=== PATIENT | male | born 1965 | race Caucasian/White ===

== ENCOUNTER 2017-09-20 09:03 | Emergency (ER) | END 2017-09-20 12:27 | disposition home or self-care (01) ==

== ENCOUNTER → 2018-11-22 | Outpatient (CLI) | payer BC, OTHER ==
[~2018-11-22] MED LIST: IBUP800T48 PO
--- NOTE | 2018-11-22 19:05 | CONS ---
Assessment/Plan Assessment/Plan Hospital Course (Demo Recall) 53-year-old male with equal right and left knee pain for 1 year. His pain is mostly anterior and when rising from a seated position. His examination and radiographs are most consistent with patellofemoral syndrome. At this time recommending him to participate in aggressive physical therapy as well as wear shoes with good arch support to correct his mild pes planus which may significantly help his patellofemoral syndrome. Follow-up PRN Consultation Date/Type/Reason Admit Date/Time Date of Consultation: Nov 22, 2018 Reason for Consultation Bilateral knee pain Date/Time of Note DATE: 11/22/18 TIME: 18:58 Hx of Present Illness This is a 53-year-old male with a chief complaint of right and left knee pain. The pain is equal in the right and left knee. The pain began approximately 1 year ago. No injury. The patient's pain is in the anterior aspect of the right and left knee. Pain is not radiating to the lower leg. The pain is rated as a 10/10 and described as throbbing. Patient denies complaints of numbness or tingling although has a history of back pain. The pain is exacerbated by climbing stairs and sitting for long periods of time and rising from a seated position. ----- Duration: One year Injury: No Walking tolerance: Not significantly limited Limp: No Support: No Swelling: No Crepitation: Yes Instability: No Stairs: Uses normally Physical Therapy: No Injections: No NSAID's: No Prior surgery: No Back pain: Yes Hip pain: No Risk of AVN : Yes Patient denies fever, chills, shortness of breath, chest pain, nausea/vomiting, constipation, diarrhea, numbness, and tingling. Past Medical History HIV BPH Home Meds Active Scripts Ibuprofen* (Motrin*) 800 Mg Tab, 800 MG PO Q6, #30 TAB Prov:ELYSSA VILLALPANDO PA-C 09/20/17 Allergies: Coded Allergies: No Known Allergy (Unverified , 09/20/17) Past Surgical History Past Surgical Hx: no surgical history Family History Significant Family History: no pertinent family hx Social History Alcohol Use: none Smoking Status: Former smoker Drug Use: none Exam/Review of Systems Exam Vitals Weight: 150 pounds Height: 5 feet 7 inches Heart Rate: 80 Blood Pressure: 135/87 Exam General: Awake, alert, in no acute distress, pleasant and cooperative Heart: regular rhythm Lungs: breathing comfortably, no tachypnea or dyspnea MUSCULOSKELETAL: Right and Left Knee This is a well developed male who is alert, oriented times three and in no apparent distress. Skin is intact over the right and left knee as well as the lower extremity with no abrasions, lacerations, or ulcerations. Observation of the patient's gait reveals a non-antalgic gait with no thrust. Frontal plane alignment is neutral on the right and left knees. There is no pain on palpation of either joint line or elsewhere on the knee. The patient demonstrates grinding anteriorly with ROM. Range of motion: 0 extension to approximately 130 degrees of flexion. Collateral ligament testing reveals no instability with varus or valgus stress at 0 and 30 degrees of flexion. Negative Enrique's and negative posterior drawer. Mild bilateral pes planus. Neurovascularly intact with 5/5 EHL/tibialis anterior/gastroc. Sensation intact to light touch in a sural, saphenous, deep peroneal, superficial peroneal, medial and lateral plantar nerve distribution. Palpable, symmetric dorsalis pedis and posterior tibial pulses in both lower extremities. Hip examination normal Imaging Imaging The patient received a standard set of films today that were personally reviewed. Imaging included a standing bilateral knee AP, PA flexion, merchant views and a dedicated lateral of the affected knee: There is neutral alignment of the knee. There is no loss of joint space in any compartment(s). There is no osteophyte formation. There is no subchondral sclerosis. There are no subchondral cysts. No degenerative changes. No fracture. No joint effusion. Normal knee x-rays JACY MONGE MD Nov 22, 2018 19:05
--- NOTE | 2018-11-23 03:38 | RADRPT ---
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 No acute fractur es or dislocations. No focal bony blastic or lytic lesions. No evidence of right or left knee joint e ffusion. Soft tissues are unremarkable. 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 RPTAT:AAJJ Physician Donald Date Time Electronically viewed and signed by Physician Donald on 11/23/2018 03:38 BM/
== END | disposition home or self-care (01) ==
LOC: HKI 14:58
PROVIDERS: ATTEND Orthopaedic Surgery Adult Reconstructive Orthopaedic Surgery
DX: M25.562 Pain in left knee (principal); M25.561 Pain in right knee; M25.869 Other specified joint disorders, unspecified knee; M21.40 Flat foot [pes planus] (acquired), unspecified foot
CPT/HCPCS: 73564; Z7500; G0463